=== PATIENT | male | born 1985 | race Two or more races ===

== ENCOUNTER 2016-06-12 05:16 | Emergency (ER) | payer MEDICAID ==
[~2016-06-12] VITALS: Ht 175.3 cm; Wt 78.0 kg
[2016-06-12] MEDS ORDERED: TETANUS, DIPHTHERIA, PERTUSSIS VAC/PF 0.5ML (>7YR OLD) IM ONE (07:30)
[2016-06-12] MEDS ORDERED: LIDOCAINE HCL 1% 20ML VIAL (Pyxis) INJ MC ONE (07:30)
[2016-06-12] MEDS ORDERED: BACITRACIN ZINC OINT UDPKT TOP ONE (07:30)
[2016-06-12 10:34] VITALS: BP 113/77
== END 2016-06-12 10:35 | disposition home or self-care (01) ==
LOC: ER 07:28
DX: S81.811A Laceration without foreign body, right lower leg, initial encounter (principal); F32.9 Major depressive disorder, single episode, unspecified; F31.9 Bipolar disorder, unspecified; F17.200 Nicotine dependence, unspecified, uncomplicated; Z88.8 Allergy status to other drugs, medicaments and biological substances; X58.XXXA Exposure to other specified factors, initial encounter; Y93.89 Activity, other specified; Y92.89 Other specified places as the place of occurrence of the external cause; Y99.8 Other external cause status
CPT/HCPCS: 12001; 73590; 90471; 90715; 99284; J3490; Z7610; 99283

== ENCOUNTER 2017-05-03 21:28 | Emergency (ER) | payer MEDICAID ==
[~2017-05-03] VITALS: Ht 175.3 cm; Wt 87.5 kg
[~2017-05-03 21:28] MED LIST: ABIL10 PO
[2017-05-04] MEDS ORDERED: IBUPROFEN 600MG TABLET PO ONE (01:30)
[2017-05-04 03:00] VITALS: BP 117/70
== END 2017-05-04 03:06 | disposition home or self-care (01) ==
LOC: ER 22:02
DX: R07.89 Other chest pain (principal); F15.10 Other stimulant abuse, uncomplicated; F31.9 Bipolar disorder, unspecified; F41.9 Anxiety disorder, unspecified; Z88.8 Allergy status to other drugs, medicaments and biological substances
CPT/HCPCS: 71045; 93005; 99284

== ENCOUNTER 2020-07-05 13:16 | Emergency (ER) | payer MEDICAID ==
[~2020-07-05] VITALS: Ht 175.3 cm; Wt 95.0 kg
[2020-07-05 14:30] LABS: CLARITY URINE CLEAR (CLEAR); COLOR URINE YELLOW (YELLOW); KETONES URINE NEGATIVE (NEGATIVE); LEUKOCYTE ESTERASE URINE NEGATIVE (NEGATIVE); NITRITE URINE NEGATIVE (NEGATIVE); OCCULT BLOOD URINE NEGATIVE (NEGATIVE); PROTEIN URINE NEGATIVE (NEGATIVE); SPECIFIC GRAVITY URINE 1.019 (1.005-1.030); UROBILINOGEN URINE 0.2 E.U./dL (0.2-1.0)
[2020-07-05 15:03] VITALS: BP 120/70
[2020-07-05] MEDS ORDERED: BO1 TP (15:55)
[2020-07-05] MEDS ORDERED: LIDOCAINE HCL 1% 20ML VIAL (Pyxis) INJ INFIL ONE (16:00)
[2020-07-05] MEDS ORDERED: CEFTRIAXONE SODIUM 500 MG/VIAL IM ONE (16:00)
[2020-07-05] MEDS ORDERED: AZITHROMYCIN 500 MG TABLET PO ONE (16:00)
[2020-07-10 04:07] LABS: NEISSERIA GONORRHOEAE NAA Negative (Negative)
== END 2020-07-05 16:18 | disposition home or self-care (01) ==
LOC: ER 13:16
DX: Z20.2 Contact with and (suspected) exposure to infections with a predominantly sexual mode of transmission (principal); F31.9 Bipolar disorder, unspecified; S30.811A Abrasion of abdominal wall, initial encounter; X58.XXXA Exposure to other specified factors, initial encounter; Y93.89 Activity, other specified; Y92.9 Unspecified place or not applicable; Z88.8 Allergy status to other drugs, medicaments and biological substances
CPT/HCPCS: 81003; 87491; 87591; 96372; 99283; J0696; J3490

== ENCOUNTER 2022-02-07 22:39 | Emergency (ER) | payer MEDICARE, MEDICAID ==
[~2022-02-07] VITALS: Ht 175.3 cm; Wt 96.3 kg
[~2022-02-07 22:39] MED LIST changes: +BO1 TP
[2022-02-07 22:43] VITALS: BP 134/87
== END 2022-02-07 23:38 | disposition left against medical advice (07) ==
LOC: ER 22:39
DX: Z53.21 Procedure and treatment not carried out due to patient leaving prior to being seen by health care provider (principal)

== ENCOUNTER 2024-04-08 18:31 | Emergency (ER) | payer MEDICARE, MEDICAID ==
[~2024-04-08] VITALS: Ht 175.3 cm; Wt 92.0 kg
[2024-04-08 18:35] VITALS: O2SAT 99
[2024-04-08 18:40] VITALS: BP 147/78; PULSE 98; RESP 18; TEMP 36.8; O2SAT 98
[2024-04-08] MEDS ORDERED: MUPI1OIN4 TP (21:14)
== END 2024-04-08 21:30 | disposition home or self-care (01) ==
LOC: ER 18:31
DX: L21.9 Seborrheic dermatitis, unspecified (principal); F15.10 Other stimulant abuse, uncomplicated; F31.9 Bipolar disorder, unspecified; Z88.8 Allergy status to other drugs, medicaments and biological substances
CPT/HCPCS: 99283